=== PATIENT | male | born 1975 | race Caucasian/White ===

== ENCOUNTER 2021-11-23 17:32 | Emergency (ER) | payer OTHER ==
[~2021-11-23] VITALS: Ht 170.2 cm; Wt 83.0 kg
[2021-11-23 17:46] VITALS: BP 127/69
[2021-11-23] MEDS ORDERED: KETOROLAC 30 MG/ML VIAL IM ONE (18:10)
--- NOTE | 2021-11-23 18:10 | NUR ---
46 Y/O MALE C/O RIGHT SHOULDER PAIN 10/ S/P FALL X1DAY. PT TOOK TYNENOL WITH CODEINE WITH SOME RELIEF. DENIES N/V. DENIES FEVER/CHILLS. DENIES PMH NKA
--- NOTE | 2021-11-23 18:20 | NUR ---
pt placed in right shoulder sling
[2021-11-23] MEDS ORDERED: TRAM50TA1 PO (19:03)
[2021-11-23] MEDS ORDERED: IBUP-2213 PO (19:03)
[2021-11-23 19:09] VITALS: BP 120/64
--- NOTE | 2021-11-23 19:10 | NUR ---
Patient discharged with v/s stable. Written and verbal after care instructions given FOR AC SEPARATION and explained. Patient alert, oriented and verbalized understanding of instructions. Ambulatory with steady gait. All questions addressed prior to discharge. ID band removed. Patient advised to follow up with PMD. Rx of TRAMADOL AND IBUPROFEN given. Patient educated on indication of medication including possible reaction and side effects. Opportunity to ask questions provided and answered.
== END 2021-11-23 19:08 | disposition home or self-care (01) ==
LOC: MED 17:32
DX: S43.101A Unspecified dislocation of right acromioclavicular joint, initial encounter (principal); R03.0 Elevated blood-pressure reading, without diagnosis of hypertension; Z79.899 Other long term (current) drug therapy; W01.0XXA Fall on same level from slipping, tripping and stumbling without subsequent striking against object, initial encounter; Y93.89 Activity, other specified; Y92.89 Other specified places as the place of occurrence of the external cause; Y99.8 Other external cause status
CPT/HCPCS: 73030; 96372; 99283; J1885